=== PATIENT | female | born 1985 | race Caucasian/White ===

== ENCOUNTER 2021-07-21 04:20 | Emergency (ER) | payer OTHER, SELFPAY ==
[2021-07-21] VITALS (9 sets, daily range): BP systolic 114–155; BP diastolic 69–86; PULSE 58–77; RESP 18; TEMP 36.3–36.6; O2SAT 97–100
--- NOTE | ~2021-07-21 | CT_ITS ---
EXAMINATION: CT abdomen pelvis w con EXAM DATE: 07/21/2021 06:14 INDICATION: Epigastric pain. Left flank pain. TECHNIQUE: Spiral CT of the abdomen and pelvis was performed following intravenous injection of 100 m L Omnipaque 350. Axial, coronal and sagittal images of the abdomen and pelvis were reviewed. The do se-length product (DLP) for this examination was 1381.44 mGy-cm. The exposure was tailored according to patient size (auto mA exposure control), and iterative reconstruction (ASIR) was used as addition al dose reduction technique. There is no prior study for comparison. FINDINGS: The liver, spleen, adrenal glands and pancreas are unremarkable. There are gallstones with in an otherwise unremarkable gallbladder. No evidence of obstructive biliary disease. Portal and sp lenic veins are patent. Kidneys enhance symmetrically. There is no hydronephrosis. There are large right renal cysts up to 8.5 cm. Smaller cysts on the left. The uterus is anteverted and morphological ly normal. The bladder is unremarkable. There is no retroperitoneal or pelvic lymphadenopathy. The appendix is normal. The stomach and small bowel are unremarkable. There is expected amount of c olonic stool. No free intraperitoneal gas. The heart is normal in size. There are no pericardial or pleural effusions. The lung bases are unremarkable. There are no osteoblastic or osteolytic les ions identified. IMPRESSION: 1. No acute intra-abdominal findings. 2. Cholelithiasis. 3. Renal cysts. Reviewed, dictated and finalized at location A.
[2021-07-21] MEDS: SODIUM CHLORIDE 0.9% IV 1,000 ML 999 ML IV CONT (04:57)
[2021-07-21] MEDS: ONDANSETRON INJ 4 MG/2 ML VIAL IV PUSH (04:57)
[2021-07-21] MEDS: MORPHINE SULFATE (*CRX) 4 MG/ML INJ IV PUSH ×2 (04:57→06:11)
[2021-07-21 05:12] LABS: Basophils Absolute Auto 0.1 K/mm3 (0.0-0.1); Basophils Percent Auto 0.7 % (0.2-1.2); Eosinophils Absolute Auto 0.1 K/mm3 (0-0.3); Hematocrit 40.8 % (37.0-47.0); Hemoglobin 13.4 g/dL (12.0-15.0); Immature Granulocyte Absolute 0.02 K/mm3 (0.00-0.031); Immature Granulocyte Percent A 0.3 % (0-0.5); Lymphocytes Absolute Auto 1.37 K/mm3 (0.9-3.2); Lymphocytes Percent Auto 18.6 % (18.3-44.2); Mean Corpuscular HGB Conc 32.8 g/dl (32-36); Mean Corpuscular Hemoglobin 30.1 pg (26-34); Mean Corpuscular Volume 91.7 fl (80-100); Mean Platelet Volume 11.1 fl (7.4-10.4); Monocytes Absolute Auto 0.6 K/mm3 (0.1-0.6); Neutrophils Absolute Auto 5.3 K/mm3 (1.3-6.7); Neutrophils Percent Auto 71.4 % (45.5-73.1); Platelet Count Result 174 k/mm3 (150-375); Red Blood Count 4.45 M/mm3 (4.2-5.4); Red Cell Distribution Width 13.3 % (11.5-14.5); White Blood Count 7.4 K/mm3 (4.5-10.0)
[2021-07-21 05:18] LABS: Add Urine Microscopic? YES; Appearance Urine Cloudy (Clear); Bacteria Urine Trace /hpf; Bilirubin Urine Negative (Negative); Blood Urine Negative (Negative); Color Urine Yellow (Yellow); Glucose Urine UA Negative (Negative); Ketones Urine Trace mg/dL (Negative); Leukocyte Esterase Ur Trace LEU/UL (Negative); Mucus Urine Rare /lpf; Nitrate Urine Negative (Negative); Protein Urine Negative (Negative); Specific Grav Ur 1.028 (1.001-1.035); Squamous Epithelial Cell Urine Many /hpf (Few); WBC Urine 21-30 /hpf
[2021-07-21 05:22] LABS: Alanine Aminotransferase 29 U/L (4-35); Albumin Level 4.3 g/dL (3.5-5.1); Alkaline Phosphatase 63 U/L (38-126); Anion Gap 7 mmol/L (8-16); Aspartate Amino Transferase 26 U/L (14-36); Bilirubin,Total 0.4 mg/dL (0.2-1.3); Blood Urea Nitrogen 17 mg/dL (7-17); Calcium 9.1 mg/dL (8.4-10.2); Carbon Dioxide 26 mmol/L (22-30); Chloride 105 mmol/L (98-107); Estimated CRCL calculation 83 ml/min; Estimated Glomerular Filt Rate > 60; Glucose 108 mg/dL (65-110); Lipase 113 U/L (23-300); Potassium 3.7 mmol/L (3.4-5.0); Sodium 138 mmol/L (137-145)
--- NOTE | 2021-07-21 06:03 | PC.NURSE ---
Patient in CT at this time.
--- NOTE | 2021-07-21 06:21 | ED.GENADULT ---
HPI - General Adult General Chief complaint: Abdominal Pain Stated complaint: flank pain Time Seen by Provider: 07/21/21 04:44 History of Present Illness HPI narrative: Patient is a 36-year-old female who presents ER with sudden onset upper abdominal pain. Seems to be more on the left side and goes into her left back. No nausea or vomiting. Denies diarrhea. No urinary frequency urgency or hematuria. No history of kidney stones. Denies pain with eating. No alleviating factors. Related Data Allergies Allergy/AdvReac Type Severity Reaction Status Date / Time vancomycin Allergy Intermediate Unknown Verified 07/21/21 04:48 Review of Systems Review of Systems: All systems reviewed & are unremarkable except as noted in HPI and below Constitutional: Constitutional: Denies chills, Denies fever(s) and Denies weakness ENT: Denies nasal congestion and Denies sore throat Gastrointestinal: Gastrointestinal: Reports abdominal pain, Denies diarrhea, Denies nausea and Denies vomiting Genitourinary: Genitourinary: Denies hematuria, Denies nocturia and Denies dysuria [facility] Past Medical History Medical History (Updated 07/21/21 @ 06:39 by John Doran MD) Healthy female adult Surgical History Surgical History (Updated 07/21/21 @ 06:22 by John Doran MD) No history of previous surgery Social History Social History (Updated 07/12/20 @ 14:46 by Louisa Payne) Smoking status: Never smoker Second hand tobacco smoke exposure: No Alcohol intake: never Substance use: never Gender identity (if verbalized by the patient): Female Exam Narrative: GENERAL: Well-appearing, well-nourished, and in no acute distress. HEAD: Normocephalic, atraumatic. CHEST: Clear to auscultation. No respiratory distress. HEART: Regular rate and rhythm. Normal peripheral pulses. ABDOMEN: Soft, tender palpation to the right upper quadrant and epigastrium that causes increased pain on the left side, nondistended, normal active bowel sounds. EXTREMITIES: Normal range of motion. No edema. SKIN: Warm, dry, no rash. NEURO: Alert and oriented x3. PSYCH: Normal mood and affect Course Vital Signs Vital signs: Vital Signs Temperature 97.4 F L 07/21/21 04:44 Pulse Rate 58 L 07/21/21 04:44 Respiratory Rate 18 07/21/21 04:44 Blood Pressure 150/86 H 07/21/21 04:44 Pulse Oximetry 100 07/21/21 04:44 Temperature 97.4 F L 07/21/21 04:44 Pulse Rate 58 L 07/21/21 04:44 Respiratory Rate 18 07/21/21 04:44 Blood Pressure 127/77 07/21/21 05:30 Pulse Oximetry 100 07/21/21 05:45 Medical Decision Making Vital Signs Vital Signs: Vital Signs Temperature 97.4 F L 07/21/21 04:44 Pulse Rate 58 L 07/21/21 04:44 Respiratory Rate 18 07/21/21 04:44 Blood Pressure 150/86 H 07/21/21 04:44 Pulse Oximetry 100 07/21/21 04:44 Temperature 97.4 F L 07/21/21 04:44 Pulse Rate 58 L 07/21/21 04:44 Respiratory Rate 18 07/21/21 04:44 Blood Pressure 127/77 07/21/21 05:30 Pulse Oximetry 100 07/21/21 05:45 Lab Data Result diagrams: 07/21/21 04:58 07/21/21 04:58 Labs: Lab Results 07/21/21 07/21/21 07/21/21 Range/Units 04:58 04:58 04:58 WBC 7.4 (4.5-10.0) K/mm3 RBC 4.45 (4.2-5.4) M/mm3 Hgb 13.4 (12.0-15.0) g/dL Hct 40.8 (37.0-47.0) % MCV 91.7 (80-100) fl MCH 30.1 (26-34) pg MCHC 32.8 (32-36) g/dl RDW 13.3 (11.5-14.5) % Plt Count 174 (150-375) k/mm3 MPV 11.1 H (7.4-10.4) fl Immature Gran % (Auto) 0.3 (0-0.5) % Neut % (Auto) 71.4 (45.5-73.1) % Lymph % (Auto) 18.6 (18.3-44.2) % Latimer % (Auto) 8.0 (2.6-8.5) % Eos % (Auto) 1.0 (0-4.4) % Baso % (Auto) 0.7 (0.2-1.2) % Lymph # (Auto) 1.37 (0.9-3.2) K/mm3 Latimer # (Auto) 0.6 (0.1-0.6) K/mm3 Eos # (Auto) 0.1 (0-0.3) K/mm3 Baso # (Auto) 0.1 (0.0-0.1) K/mm3 Abs Immat Gran (auto) 0.02 (0.00-0.031) K/mm3 Absol
== END 2021-07-21 06:49 | disposition home or self-care (01) ==
PROVIDERS: Emergency Provider Emergency Medicine; PCP Family Medicine
DX: K80.20 Calculus of gallbladder without cholecystitis without obstruction (principal); N39.0 Urinary tract infection, site not specified; N28.1 Cyst of kidney, acquired
CPT/HCPCS: 36415; 74177; 80053; 81001; 81025; 83690; 85025; 87086; 87088; 96361; 96374; 96375; 96376; 99284; J2270; J2405; J7030; Q9967

== ENCOUNTER → 2021-08-21 01:34 | Outpatient (CLI) | payer OTHER, SELFPAY ==
[2021-08-21 18:23] LABS: SARS-CoV-2 RNA PCR Negative
== END ==
PROVIDERS: PCP Family Medicine; Visit Provider Surgery
DX: Z01.812 Encounter for preprocedural laboratory examination (principal); Z20.822 Contact with and (suspected) exposure to COVID-19
CPT/HCPCS: C9803; U0003; U0005

== ENCOUNTER 2021-08-22 08:59 | Outpatient (CLI) | payer OTHER, SELFPAY ==
[2021-08-22 10:04] LABS: Alanine Aminotransferase 39 U/L (4-35); Albumin Level 4.2 g/dL (3.5-5.1); Alkaline Phosphatase 44 U/L (38-126); Amylase 60 U/L (30-110); Aspartate Amino Transferase 35 U/L (14-36); Bilirubin,Total 0.8 mg/dL (0.2-1.3); Lipase 60 U/L (23-300)
== END 2021-08-22 09:00 | disposition home or self-care (01) ==
LOC: ANHSURGERY 09:03
PROVIDERS: PCP Family Medicine; Visit Provider Surgery
DX: Z01.812 Encounter for preprocedural laboratory examination (principal); K80.10 Calculus of gallbladder with chronic cholecystitis without obstruction
CPT/HCPCS: 36415; 80076; 82150; 83690; 86850; 86900; 86901

== ENCOUNTER 2021-08-24 01:56 | Day surgery (SDC) | payer OTHER, SELFPAY ==
[2021-08-21 08:43] VITALS: BMI 37.5
--- NOTE | 2021-08-23 09:45 | WPDANESEPPF ---
Anes - Initial Pre Proc Eval Procedure: Operation Date: 08/24/21 07:30 Proposed Procedures p Laparoscopic Cholecystectomy - Rodrigo Patrick MD Date/Time: 08/23/21 09:45 Surgeon: Rodrigo Patrick MD Pre Op Diagnosis: chronic cholecystitis with stones Patient Data Age: 36 Gender: F Height: 1.57 m Weight: 92.99 kg Allergies Allergy/AdvReac Type Severity Reaction Status Date / Time vancomycin Allergy Intermediate Other Verified 08/24/21 06:28 Home Medications Medication Instructions Recorded Confirmed Type ibuprofen 200 mg capsule 200 mg PO Q6H PRN 08/01/21 08/24/21 History Patient hx anesthesia problems: none Family hx anesthesia problems: none Results Review: All pre-operative results and documents have been reviewed as part of the pre-operative evaluation. [facility] Past Medical History Medical History (Updated 08/06/21 @ 10:21 by Patricia Patel) Healthy female adult Surgical History Surgical History (Updated 08/06/21 @ 09:36 by Fam Lozoya MA) History of tonsillectomy and adenoidectomy No history of previous surgery Family History Family History (Updated 08/06/21 @ 09:36 by Fam Lozoya MA) Mother Family history of malignant neoplasm of cervix Father Diabetes mellitus Social History Social History Smoking status: Never smoker Second hand tobacco smoke exposure: No Alcohol intake: current Alcohol use details: A COUPLE/MONTH Substance use: never Substance use type: does not use Living arrangements: with family Additional living arrangements comments: CHILDREN 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 Informed Consent: The patient's anesthetic plan and its attendant risks and benefits were discussed with the patient/family/POA. Questions were solicited and answers provided to the satisfaction of the patient/family/POA.
[2021-08-24] VITALS (7 sets, daily range): BP systolic 119–149; BP diastolic 63–91; PULSE 57–97; RESP 14–20; TEMP 36.3–36.4; O2SAT 93–100; BMI 36.8
--- NOTE | 2021-08-24 06:13 | WPDHPUPDATE1 ---
History and Physical Update Update Date/Time: 08/24/21 06:13 History and Physical has been reviewed, including an updated exam of the patient. There are NO changes in the patient's condition. Risks, benefits, and alternatives have been discussed and questions answered. Patient agrees to proceed with procedure.
[2021-08-24] MEDS: LACTATED RINGERS 1,000 ML 30 ML IV CONT ×2 (06:45→08:52)
[2021-08-24] MEDS: ACETAMINOPHEN 500 MG TABLET 1000 MG PO (06:50)
[2021-08-24] MEDS: KETOROLAC 15 MG/ML VIAL (*BKC) IV PUSH (06:50)
[2021-08-24] MEDS: ceFAZolin 2 GM/D5W 50 ML 2 GM/50 ML BAG IVPB (07:19)
[2021-08-24] MEDS: LIDO 1%/EPINEPHRINE 1:100,000 50 ML VIAL INFILTRATE (08:08)
--- NOTE | 2021-08-24 08:13 | W.PM.PROC2 ---
Procedure Note - Detailed Date of Procedure 08/24/21 Pre-op Diagnosis chronic cholecystitis with stones Post-op Diagnosis same Procedure Performed Laparoscopic cholecystectomy Surgeon Rodrigo Patrick MD [employer] Gurvinder CLARK Anesthesia general and local (1% lidocaine with epinephrine) Indications Patient experienced very severe left upper quadrant abdominal pain that awakened her in the middle of the night. She had eaten quite a bit of castillo before going to bed. Imaging showed gallstones. She has a strong family history of gallbladder disease. She is taken to surgery now for laparoscopic cholecystectomy for chronic cholecystitis. Findings Mild inflammation, gallstones in the gallbladder, no biliary ductal dilatation, no liver abnormalities. Description of Procedure Patient was taken to surgery and induced into general anesthesia. The abdomen was prepped and draped. Trocars were placed in the usual fashion using 1% lidocaine with epinephrine. [employer] optical trocars were used as well. The gallbladder was freed from some omental adhesions. It was retracted anterosuperiorly. Dissection was carried out in the cholecystohepatic triangle. The cystic duct and cystic artery were dissected out very clearly. Critical view was achieved. We securely clipped and divided the cystic duct and cystic artery. Gallbladder was then dissected free of its remaining attachments to the liver. Once it was free, the gallbladder was placed in an Endo-Catch bag and retrieved through the 10 11 epigastric trocar site. We replaced the epigastric trocar. We reviewed the gallbladder fossa and right upper quadrant. It was irrigated and suctioned. Any residual clot or debris were removed. Repeated irrigation and suctioning were carried out. All looked good with no evidence of bleeding or other issues. We then evacuated CO2 and removed the trocar sleeves. Skin wounds were closed with subcuticular 4-0 Monocryl skin suture. The wounds were dressed with Exofin surgical adhesive. Patient was awakened and taken to recovery in good condition. Sponge needle counts were correct x2. Estimated Blood Loss -5 Drains No Packing No Pathology yes (Gallbladder) Complications No immediate complications Condition stable Disposition PACU
[2021-08-24] MEDS: oxyCODONE HCL (*CRX) 5 MG TAB IR PO (09:36)
== END 2021-08-24 10:32 | disposition home or self-care (01) ==
PROVIDERS: PCP Family Medicine; Visit Provider Surgery
PROC: 0FT44ZZ Resection of Gallbladder, Percutaneous Endoscopic Approach (ICD-10-PCS; CPT 47562; principal; 2021-08-24 07:30)
DX: K80.10 Calculus of gallbladder with chronic cholecystitis without obstruction (principal); E66.9 Obesity, unspecified; Z68.36 Body mass index [BMI] 36.0-36.9, adult; Z84.89 Family history of other specified conditions
CPT/HCPCS: 47562; 88304; A9270; C1713; J0330; J0690; J1100; J1885; J2250; J2405; J2704; J3010; J7120

== ENCOUNTER 2021-12-04 09:39 | Outpatient (CLI) | payer OTHER, SELFPAY ==
--- NOTE | ~2021-12-04 | US_ITS ---
EXAMINATION: US renal BI EXAM DATE: 12/04/2021 10:08 INDICATION: Cyst of kidney. TECHNIQUE: Multiple grayscale and Doppler images of the kidneys were obtained (by a technologist who performed the scan) and subsequently reviewed. Correlation is made to CT abdomen pelvis 07/21/2021. FINDINGS: Right kidney: There is normal contour and echogenicity. It measures 13.4 x 6.9 x 7.1 centimeters. Se veral large renal cysts, measuring up to 7 cm in size. There is no hydronephrosis. Left kidney: There is normal contour and echogenicity. It measures 14.1 x 7.7 x 5.4 centimeters. Sev eral cysts, largest measuring 5 cm in size. There is no hydronephrosis. Bladder unremarkable. IMPRESSION: 1. Anechoic renal lesions consistent with cysts. 2. Renal measurements as above. Reviewed, dictated and finalized at location B. GRO[facility]ER
== END 2021-12-04 09:40 | disposition home or self-care (01) ==
PROVIDERS: PCP Family Medicine; Visit Provider Internal Medicine Nephrology
DX: N28.1 Cyst of kidney, acquired (principal)
CPT/HCPCS: 76775

== ENCOUNTER 2022-01-09 06:38 | Outpatient (CLI) | payer OTHER, SELFPAY ==
--- NOTE | ~2022-01-09 | MR_ITS ---
EXAMINATION: MRA brain wo con DATE: 01/09/2022 08:13 INDICATION: Polycystic kidney disease. Headache. TECHNIQUE: Magnetic resonance angiography (MRA) of the brain was performed without intravenous contra st with T1-weighted SPGR by the 3D [id number] technique. Maximum intensity projection 3D-reconstr uctions were obtained. COMPARISON: None. FINDINGS: The vertebral arteries are codominant. There is no significant stenosis of basilar artery or the post erior cerebral arteries. The posterior communicating arteries are normal. There is no significant marisa nosis of the intracranial internal carotid arteries or anterior or middle cerebral arteries. Anterior communicating artery is normal. There is no aneurysm. IMPRESSION: 1. No aneurysm or significant intracranial arterial stenosis. Reviewed, dictated and finalized at location A.
== END 2022-01-09 06:39 | disposition home or self-care (01) ==
LOC: ANHIMG 06:42
PROVIDERS: PCP Family Medicine; Visit Provider Internal Medicine Nephrology
DX: N28.1 Cyst of kidney, acquired (principal)
CPT/HCPCS: 70544